=== PATIENT | female | born 1955 | race Hispanic/Latino ===

== ENCOUNTER 2021-11-17 16:19 | Observation (INO) | payer BC, MEDICARE ==
[~2021-11-17] VITALS: Ht 157.5 cm; Wt 61.2 kg
[~2021-11-17 16:19] MED LIST: ASPI-556 PO; METO25TA6 PO; NITR0.4T50 SL; PRAV10TA39 PO
[2021-11-17] MEDS ORDERED: NITROGLYCERIN 1GM OINT 1 INCH/1GM TD ONE (17:30)
[2021-11-17] MEDS ORDERED: ASPIRIN 81MG CHEW TAB PO ONE (17:30)
[2021-11-17 17:46] LABS: BASOPHILS % (AUTO) 0.5 % (0.0-5.0); EOSINOPHILS % (AUTO) 6.1 % (0.0-8.0); HEMATOCRIT 37.3 % (36-48); LYMPHOCYTES % (AUTO) 34.2 % (21.0-51.0); MEAN CORPUSCULAR HEMOGLOBIN 29.2 pg (27.0-33.0); MEAN CORPUSCULAR HGB CONC 32.7 g/dL (32.0-36.0); MEAN CORPUSCULAR VOLUME 89.2 fL (79-99); MONOCYTES % (AUTO) 12.5 % (3.0-13.0); NEUTROPHILS % (AUTO) 46.4 % (40.0-77.0); PLATELET COUNT (AUTO) 212 K/uL (130-400); RED BLOOD CELL COUNT(AUTO) 4.18 MIL/uL (4.00-5.50); RED CELL DISTRIBUTION WIDTH 12.4 % (11.0-15.5); WHITE BLOOD COUNT (AUTO) 3.9 K/uL (4.8-10.8)
[2021-11-17 17:58] LABS: CREATININE 0.9 mg/dL (0.5-1.5); POTASSIUM 3.9 mmol/L (3.5-5.1)
[2021-11-17] MEDS ORDERED: ACETAMINOPHEN 325 MG TAB PO PRN (19:30)
[2021-11-17] MEDS ORDERED: ACETAMINOPHEN 650 MG SUPPOSITORY RC PRN (19:30)
[2021-11-17] MEDS: NITROGLYCERIN 1GM OINT 1 INCH/1GM TD SCH (19:30)
[2021-11-17] MEDS ORDERED: MORPHINE 2 MG SYG IVP PRN (19:30)
[2021-11-17] MEDS ORDERED: HYDRALAZINE 20MG/ML VIAL IV PRN (19:30)
[2021-11-17] MEDS ORDERED: TEMAZEPAM 15 MG CAPSULE PO PRN (19:30)
[2021-11-17] MEDS ORDERED: LACTULOSE 20 GM/30 ML UDCUP PO PRN (19:30)
[2021-11-17] MEDS: INSULIN LISPRO 100 UNIT/ML 3ML SQ SCH (21:00)
[2021-11-17] MEDS: SIMVASTATIN 20 MG TABLET PO SCH (21:49)
[2021-11-17 22:10] VITALS: BP 138/82
[2021-11-17] MEDS ORDERED: CLOP75TA32 PO (22:56)
[2021-11-17] MEDS ORDERED: ISOS30TA92 PO (22:56)
[2021-11-17] MEDS ORDERED: LISI5TAB21 PO (22:56)
[2021-11-17] MEDS ORDERED: PRAV20TA4 PO (22:56)
[2021-11-17] MEDS ORDERED: PANT40TA55 PO (22:56)
[2021-11-18] MEDS: NITROGLYCERIN 1GM OINT 1 INCH/1GM TD SCH ×3 (03:51→20:58)
[2021-11-18 03:56] VITALS: BP 120/67
[2021-11-18 04:56] LABS: CREATININE 0.8 mg/dL (0.5-1.5); MAGNESIUM 1.9 mg/dL (1.80-2.40); PHOSPHORUS 4.2 mg/dL (2.5-4.9); POTASSIUM 3.6 mmol/L (3.5-5.1)
[2021-11-18] MEDS: INSULIN LISPRO 100 UNIT/ML 3ML SQ SCH ×4 (06:16→20:59)
[2021-11-18 08:00] VITALS: BP 124/73
[2021-11-18] MEDS: ENOXAPARIN SODIUM 30 MG/0.3 ML SQ SCH (08:38)
[2021-11-18] MEDS: ASPIRIN 81MG CHEW TAB PO SCH (08:39)
[2021-11-18 11:52] VITALS: BP 132/76
[2021-11-18 15:51] VITALS: BP 138/80
[2021-11-18 19:12] VITALS: BP 123/74
[2021-11-18] MEDS: SIMVASTATIN 20 MG TABLET PO SCH (20:58)
[2021-11-18 23:53] VITALS: BP 128/73
[2021-11-19 04:05] VITALS: BP 137/77
[2021-11-19] MEDS: NITROGLYCERIN 1GM OINT 1 INCH/1GM TD SCH ×2 (04:09→11:48)
[2021-11-19 04:27] LABS: BASOPHILS % (AUTO) 0.8 % (0.0-5.0); EOSINOPHILS % (AUTO) 7.1 % (0.0-8.0); LYMPHOCYTES % (AUTO) 41.6 % (21.0-51.0); MEAN CORPUSCULAR HEMOGLOBIN 28.5 pg (27.0-33.0); MEAN CORPUSCULAR HGB CONC 31.9 g/dL (32.0-36.0); MEAN CORPUSCULAR VOLUME 89.4 fL (79-99); MONOCYTES % (AUTO) 12.5 % (3.0-13.0); NEUTROPHILS % (AUTO) 37.7 % (40.0-77.0); PLATELET COUNT (AUTO) 197 K/uL (130-400); RED BLOOD CELL COUNT(AUTO) 4.14 MIL/uL (4.00-5.50); RED CELL DISTRIBUTION WIDTH 12.6 % (11.0-15.5); WHITE BLOOD COUNT (AUTO) 3.5 K/uL (4.8-10.8)
[2021-11-19 04:47] LABS: CREATININE 0.8 mg/dL (0.5-1.5); POTASSIUM 3.7 mmol/L (3.5-5.1)
[2021-11-19 04:52] LABS: B-TYPE NATRIURETIC PEPTIDE 11 pg/mL (0-100)
[2021-11-19 04:59] LABS: ALBUMIN 3.1 g/dL (3.5-5.0); BILIRUBIN,TOTAL 0.3 mg/dL (0.2-1.0); MAGNESIUM 1.9 mg/dL (1.80-2.40); PHOSPHORUS 4.2 mg/dL (2.5-4.9); THYROID STIMULATING HORMONE 1.08 uIU/mL (0.36-3.74); TOTAL PROTEIN, SERUM 6.3 g/dL (6.0-8.3)
[2021-11-19] MEDS: INSULIN LISPRO 100 UNIT/ML 3ML SQ SCH ×3 (07:30→16:27)
[2021-11-19] MEDS: ENOXAPARIN SODIUM 30 MG/0.3 ML SQ SCH (08:16)
[2021-11-19] MEDS: ASPIRIN 81MG CHEW TAB PO SCH (08:16)
[2021-11-19 08:52] VITALS: BP 133/74
[2021-11-19 12:30] VITALS: BP 129/77
[2021-11-19] MEDS ORDERED: PRAVASTATIN SODIUM 20 MG PO SCH (17:00)
[2021-11-19] MEDS ORDERED: LISINOPRIL 5 MG TABLET PO SCH (21:00)
[2021-11-19] MEDS ORDERED: METOPROLOL TARTRATE 25 MG TAB PO SCH (21:00)
[2021-11-20] MEDS ORDERED: ISOSORBIDE MONO 30MG SR TAB PO SCH (09:00)
[2021-11-20] MEDS ORDERED: PANTOPRAZOLE 40 MG TAB DR PO SCH (09:00)
[2021-11-20] MEDS ORDERED: ASPIRIN 81 MG EC TAB PO SCH (09:00)
[2021-11-20] MEDS ORDERED: CLOPIDOGREL 75MG TAB PO SCH (09:00)
== END 2021-11-19 17:23 | disposition home or self-care (01) ==
LOC: EDH 16:19 → EDHIP 18:57 → 2AH 22:14
PROVIDERS: ADMIT Internal Medicine; ATTEND Internal Medicine
DX: R07.89 Other chest pain (principal); I10 Essential (primary) hypertension; I25.10 Atherosclerotic heart disease of native coronary artery without angina pectoris; E78.00 Pure hypercholesterolemia, unspecified; Z90.710 Acquired absence of both cervix and uterus; Z79.02 Long term (current) use of antithrombotics/antiplatelets; Z79.82 Long term (current) use of aspirin; Z79.899 Other long term (current) drug therapy; Z90.13 Acquired absence of bilateral breasts and nipples; Z85.3 Personal history of malignant neoplasm of breast; Z95.5 Presence of coronary angioplasty implant and graft
CPT/HCPCS: 36415 ×3; 71045; 71046; 80048 ×2; 80053; 82550; 82948 ×3; 83735 ×2; 83874; 83880; 84100 ×2; 84145; 84443; 84484 ×3; 85025 ×2; 93005 ×2; 93306; 93356; 96372 ×2; 99285; G0378 ×45; J1650 ×2

== ENCOUNTER 2022-04-07 16:02 | Emergency (ER) | payer MEDICARE ==
[~2022-04-07] VITALS: Ht 157.5 cm; Wt 51.7 kg
[~2022-04-07 16:02] MED LIST changes: +CLOP75TA32 PO; +ISOS30TA92 PO; +LISI5TAB21 PO; +PANT40TA55 PO; -PRAV10TA39 PO; +PRAV20TA4 PO
[2022-04-07] MEDS ORDERED: HYDROCODONE/ACETAMINOPHEN 5/325 MG TAB PO ONE (16:30)
[2022-04-07] MEDS ORDERED: KETOROLAC 30MG VIAL (30MG/ML) IM ONE (17:00)
[2022-04-07] MEDS ORDERED: NAPR-1180 PO (17:50)
[2022-04-07 18:09] VITALS: BP 125/77
== END 2022-04-07 18:12 | disposition home or self-care (01) ==
LOC: EDH 16:02
DX: S80.02XA Contusion of left knee, initial encounter (principal); S80.12XA Contusion of left lower leg, initial encounter; E78.00 Pure hypercholesterolemia, unspecified; I10 Essential (primary) hypertension; Z79.1 Long term (current) use of non-steroidal anti-inflammatories (NSAID); Z79.82 Long term (current) use of aspirin; W18.39XA Other fall on same level, initial encounter; Y93.89 Activity, other specified; Y92.89 Other specified places as the place of occurrence of the external cause; Y99.8 Other external cause status
CPT/HCPCS: 99284; 73562; 73590; 96372; J1885

== ENCOUNTER 2022-07-23 15:02 | Emergency (ER) | payer MEDICARE ==
[~2022-07-23] VITALS: Ht 157.5 cm; Wt 52.6 kg
[~2022-07-23 15:02] MED LIST changes: +NAPR-1180 PO
[2022-07-23 15:44] LABS: BASOPHILS % (AUTO) 0.2 % (0.0-5.0); EOSINOPHILS % (AUTO) 1.6 % (0.0-8.0); LYMPHOCYTES % (AUTO) 27.6 % (21.0-51.0); MEAN CORPUSCULAR HEMOGLOBIN 29.3 pg (27.0-33.0); MEAN CORPUSCULAR HGB CONC 32.6 g/dL (32.0-36.0); MEAN CORPUSCULAR VOLUME 89.8 fL (79-99); MONOCYTES % (AUTO) 6.3 % (3.0-13.0); NEUTROPHILS % (AUTO) 64.1 % (40.0-77.0); PLATELET COUNT (AUTO) 193 K/uL (130-400); RED BLOOD CELL COUNT(AUTO) 4.23 MIL/uL (4.00-5.50); RED CELL DISTRIBUTION WIDTH 12.7 % (11.0-15.5); WHITE BLOOD COUNT (AUTO) 5.1 K/uL (4.8-10.8)
[2022-07-23 15:45] LABS: APPEARANCE,URINE CLEAR (CLEAR); BILIRUBIN,URINE NEGATIVE (NEGATIVE); COLOR,URINE COLORLESS (YELLOW); GLUCOSE, URINE (UA) NEGATIVE (NEGATIVE); KETONES,URINE NEGATIVE (NEGATIVE); LEUKOCYTE ESTERASE ,URINE NEGATIVE Leu/uL (NEGATIVE); NITRATE,URINE NEGATIVE (NEGATIVE); OCCULT BLOOD,URINE NEGATIVE (NEGATIVE); PROTEIN,URINE NEGATIVE (NEGATIVE); UROBILINOGEN,URINE 0.2 mg/dL (0.2-1.0)
[2022-07-23 15:49] LABS: SQUAMOUS EPITHELIAL CELL,UR RARE /HPF (0-2); WBC,URINE 0-1 /HPF (0-1)
[2022-07-23 16:26] LABS: ALBUMIN 3.5 g/dL (3.5-5.0); CREATININE 0.9 mg/dL (0.5-1.5); POTASSIUM 3.7 mmol/L (3.5-5.1); TOTAL PROTEIN, SERUM 6.8 g/dL (6.0-8.3)
[2022-07-23] MEDS ORDERED: MAG/ALUM/SIMETH 30 ML UDCUP PO ONE (17:00)
[2022-07-23] MEDS ORDERED: ONDANSETRON 4MG INJ IVP ONE (17:00)
[2022-07-23] MEDS ORDERED: LIDOCAINE HCL 2% VISCOUS 15 ML UDCUP PO ONE (17:00)
[2022-07-23] MEDS ORDERED: DEXL60CA3 PO (18:10)
[2022-07-23 18:27] VITALS: BP 143/81
== END 2022-07-23 18:21 | disposition home or self-care (01) ==
LOC: EDH 15:02
DX: K21.9 Gastro-esophageal reflux disease without esophagitis (principal); I10 Essential (primary) hypertension; E78.00 Pure hypercholesterolemia, unspecified; Z79.899 Other long term (current) drug therapy; Z90.710 Acquired absence of both cervix and uterus
CPT/HCPCS: 99285; 96374; 71045; 84484; 80053; 85025; 81001; 36415; 93005; J2405

== ENCOUNTER → 2022-12-04 | Outpatient (CLI) | payer MEDICARE ==
[~2022-12-04] MED LIST changes: +DEXL60CA3 PO
== END | disposition home or self-care (01) ==
LOC: SHCH 13:16
PROVIDERS: ATTEND Internal Medicine Cardiovascular Disease
DX: G45.1 Carotid artery syndrome (hemispheric) (principal)
CPT/HCPCS: 93880

== ENCOUNTER 2023-11-04 16:16 | Emergency (ER) | payer MEDICARE ==
[~2023-11-04] VITALS: Ht 157.5 cm; Wt 53.1 kg
[2023-11-04 16:39] LABS: BASOPHILS # (AUTO) 0.02 K/uL (0.00-0.20); BASOPHILS % (AUTO) 0.3 % (0.0-5.0); EOSINOPHILS # (AUTO) 0.16 K/uL (0.00-0.70); EOSINOPHILS % (AUTO) 2.7 % (0.0-8.0); IMMATURE GRANULOCYTE ABSOLUTE 0.02 K/uL (0-1); LYMPHOCYTES % (AUTO) 33.5 % (21.0-51.0); MEAN CORPUSCULAR HEMOGLOBIN 30.3 pg (27.0-33.0); MEAN CORPUSCULAR HGB CONC 33.5 g/dL (32.0-36.0); MEAN CORPUSCULAR VOLUME 90.3 fL (79-99); MONOCYTES # (AUTO) 0.5 K/uL (0.1-1.0); MONOCYTES % (AUTO) 7.9 % (3.0-13.0); NEUTROPHILS # (AUTO) 3.3 K/uL (1.8-7.7); NEUTROPHILS % (AUTO) 55.3 % (40.0-77.0); PLATELET COUNT (AUTO) 235 K/uL (130-400); RED BLOOD CELL COUNT(AUTO) 4.76 MIL/uL (4.00-5.50); RED CELL DISTRIBUTION WIDTH 13.1 % (11.0-15.5)
[2023-11-04 16:47] LABS: CREATININE 0.8 mg/dL (0.5-1.0); POTASSIUM 3.5 mmol/L (3.5-5.1)
[2023-11-04 16:48] LABS: APPEARANCE,URINE CLEAR (CLEAR); BILIRUBIN,URINE NEGATIVE (NEGATIVE); COLOR,URINE COLORLESS (YELLOW); GLUCOSE, URINE (UA) NEGATIVE (NEGATIVE); KETONES,URINE NEGATIVE (NEGATIVE); LEUKOCYTE ESTERASE ,URINE NEGATIVE Leu/uL (NEGATIVE); NITRATE,URINE NEGATIVE (NEGATIVE); OCCULT BLOOD,URINE NEGATIVE (NEGATIVE); PH,URINE 5.5 (5.0-8.0); PROTEIN,URINE NEGATIVE (NEGATIVE); UROBILINOGEN,URINE 0.2 mg/dL (0.2-1.0)
[2023-11-04 16:56] LABS: BILIRUBIN,TOTAL 0.3 mg/dL (0.2-1.0); TOTAL PROTEIN, SERUM 7.7 g/dL (6.0-8.3)
[2023-11-04 17:15] LABS: ADD UA MICROSCOPIC NO
[2023-11-04] MEDS: 0.9%NACL 1000ML 1,000 ML IV ONE (17:26)
[2023-11-04] MEDS: DiphenhydrAMINE HCL 50 MG/ML VIAL IV ONE (17:26)
[2023-11-04] MEDS: PROCHLORPERAZINE 10MG/2ML INJ IV ONE (17:26)
[2023-11-04 17:31] VITALS: BP 163/98; PULSE 76; RESP 16; O2SAT 97
[2023-11-04] MEDS ORDERED: DICL20GE TP (18:31)
== END 2023-11-04 18:39 | disposition home or self-care (01) ==
LOC: EDH 16:16
DX: G44.209 Tension-type headache, unspecified, not intractable (principal); I10 Essential (primary) hypertension; E78.00 Pure hypercholesterolemia, unspecified; Z79.82 Long term (current) use of aspirin; Z79.899 Other long term (current) drug therapy; Z90.710 Acquired absence of both cervix and uterus; Z98.890 Other specified postprocedural states
CPT/HCPCS: 99285; 96374; 71045; 96361; 96375; 84484; 80053; 85025; 81003; 36415; 93005 ×2; J1200; J7030; J0780

== ENCOUNTER → 2024-09-21 | Outpatient (CLI) | payer MEDICARE ==
[~2024-09-21] MED LIST changes: +DICL20GE TP; +IOHEXOL-350 50ML VIAL IV ONE
--- NOTE | 2024-09-21 15:43 | HMCIMG ---
CT HEAD/BRAIN W/WO CONTRAST HISTORY: Headache COMPARISON: None TECHNIQUE: Multiple sequential axial images of the head were obtained from the base of the skull through vertex. Patient was given 50 cc of Omnipaque through intravenous route. FINDINGS: The ventricles and extraventricular CSF spaces are dilated consistent with cerebral atrophy. Nonspecific white matter changes seen. Abnormal enhancement is seen. There is no midline shift, mass effect or herniation. No acute intracranial bleed is seen. Visualized portion of the paranasal sinuses are grossly within normal limits. IMPRESSION: 1. No acute intracranial bleed is seen. Atrophy white matter changes. No mass lesion or abnormal enhancement is seen. CT was performed with one or more following dose reduction techniques: automated exposure control, adjustment of the mA and kv according to patient's size, or use of a iterative reconstruction technique.
== END | disposition home or self-care (01) ==
LOC: RAH 13:29
PROVIDERS: ATTEND Family Medicine
DX: R51.9 Headache, unspecified (principal)
CPT/HCPCS: 70470; Q9967